=== PATIENT | male | born 1980 | race Hispanic/Latino ===

== ENCOUNTER 2019-01-25 | Emergency (ER) | payer MEDICAID ==
[2019-01-25 00:22] VITALS: RESP 20
--- NOTE | 2019-01-25 01:31 | C.PDOC ---
History Of Present Illness 38 y/o male pt presents to the ER requesting detox for alcohol, heroin and cocaine. Pt has no associated sx or complaints at this time. Time Seen by Provider: 01/25/19 00:54 Chief Complaint (Nursing): Substance Abuse History Per: Patient History/Exam Limitations: no limitations Onset/Duration Of Symptoms: Days Current Symptoms Are (Timing): Still Present Modifying Factor(s): Alcohol, Narcotics, Cocaine Past Medical History Reviewed: Historical Data, Nursing Documentation, Vital Signs Vital Signs: Last Vital Signs Temp 98.8 F 01/25/19 00:14 Pulse 92 H 01/25/19 00:14 Resp 20 01/25/19 00:14 BP 119/80 01/25/19 00:14 Pulse Ox 96 01/25/19 00:14 Family History: States: No Known Family Hx - Social History Hx Alcohol Use: Yes Hx Substance Use: Yes - Immunization History Hx Tetanus Toxoid Vaccination: No Hx Influenza Vaccination: No Hx Pneumococcal Vaccination: No Review Of Systems Except As Marked, All Systems Reviewed And Found Negative. Constitutional: Positive for: Other (requesting detox ) Gastrointestinal: Negative for: Nausea, Vomiting Skin: Negative for: Rash Neurological: Negative for: Weakness, Numbness Physical Exam - Physical Exam Appears: Non-toxic, No Acute Distress Skin: Warm, Dry Head: Normacephalic Eye(s): bilateral: Normal Inspection Ear(s): Bilateral: Normal Nose: Normal Oral Mucosa: Moist Throat: Normal Chest: Symmetrical Cardiovascular: Rhythm Regular Respiratory: Normal Breath Sounds Gastrointestinal/Abdominal: Soft, No Tenderness Neurological/Psych: Oriented x3, Normal Speech ED Course And Treatment O2 Sat by Pulse Oximetry: 96 (RA) Pulse Ox Interpretation: Normal Progress Note: There are no detox beds available. Pt was given number to call and be placed on the list for detox. pt remained stable at discharge ( HR of 18 at discharge was erroneously entered). 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 - Scribe Statement The provider has reviewed the documentation as recorded by the Navdeep Umaña Do All medical record entries made by the Corinneibmarycarmen were at my direction and personally dictated by me. I have reviewed the chart and agree that the record accurately reflects my personal performance of the history, physical exam, medical decision making, and the department course for this patient. I have also personally directed, reviewed, and agree with the discharge instructions and disposition.
[2019-01-25 01:39] VITALS: BP 130/72; PULSE 18; TEMP 98.7
[2019-01-25 04:25] VITALS: O2SAT 96
== END 2019-01-25 01:39 | disposition home or self-care (01) ==
LOC: C.ER
DX: F19.10 Other psychoactive substance abuse, uncomplicated (principal)

== ENCOUNTER 2019-01-25 07:42 | Emergency (ER) | payer MEDICAID ==
[2019-01-25 07:50] VITALS: RESP 16
--- NOTE | 2019-01-25 08:20 | C.PDOC ---
History Of Present Illness 38 years old male presents to ED requesting detox from alcohol, Xanax, and Heroin. Patient states last use was yesterday night. Patient also reports he he was just discharged from [facility] this morning. Patient states PMHx of Scoliosis and "mild cerebral palsy." Time Seen by Provider: 01/25/19 07:43 Chief Complaint (Nursing): Substance Abuse History Per: Patient History/Exam Limitations: no limitations Onset/Duration Of Symptoms: Hrs Current Symptoms Are (Timing): Still Present Modifying Factor(s): Alcohol, Narcotics (Heroin ), Other (Xanax) Associated Symptoms: denies: Suicidal Thoughts, Suicidal Plan Involuntary Hold By: None Recent travel outside of the [place]: No Past Medical History Reviewed: Historical Data, Nursing Documentation, Vital Signs Vital Signs: Last Vital Signs Temp 97.7 F 01/25/19 07:46 Pulse 91 H 01/25/19 07:46 Resp 16 01/25/19 07:46 BP 172/91 H 01/25/19 07:46 Pulse Ox 96 01/25/19 07:46 - Medical History PMH: No Chronic Diseases Family History: States: No Known Family Hx - Social History Hx Alcohol Use: Yes Hx Substance Use: Yes - Immunization History Hx Tetanus Toxoid Vaccination: No Hx Influenza Vaccination: No Hx Pneumococcal Vaccination: No Review Of Systems Constitutional: Negative for: Fever, Chills Gastrointestinal: Negative for: Nausea, Vomiting, Diarrhea Skin: Negative for: Rash Neurological: Negative for: Weakness, Numbness Physical Exam - Physical Exam Appears: Non-toxic, No Acute Distress, Other (Appears under the influence. Arousable. Drowsy. Slurred Speech. ) Skin: Normal Color, Warm, Dry, No Rash Head: Atraumatic, Normacephalic Eye(s): bilateral: Other (Pin Point Pupils) Nose: Normal Oral Mucosa: Moist Neck: Normal ROM, Supple Chest: Symmetrical, No Tenderness Cardiovascular: Rhythm Regular, No Murmur Respiratory: Normal Breath Sounds, No Rales, No Rhonchi, No Wheezing Gastrointestinal/Abdominal: Soft, No Tenderness Extremity: Normal ROM Extremity: Bilateral: Atraumatic, Normal Color And Temperature, Normal ROM Pulses: Left Radial: Normal, Right Radial: Normal Neurological/Psych: Oriented x3, Other (No focal deficits ) ED Course And Treatment - Laboratory Results Result Diagrams: 01/25/19 09:34 01/25/19 09:34 O2 Sat by Pulse Oximetry: 96 (RA) Pulse Ox Interpretation: Normal Progress Note: Ordered Blood work and Urinalysis. 10:10- Patient not cooperative, will not allow security to search him or lock up his posssessions. Will discharge patient. Disposition Counseled Patient/Family Regarding: Diagnosis, Need For Followup - Disposition Referrals: [facility] [Outside] Disposition: HOME/ ROUTINE Disposition Time: 10:10 Condition: STABLE Instructions: Polysubstance Abuse (DC) Forms: [employer] (Serbian) Print Language: GERMAN - Clinical Impression Clinical Impression: Substance abuse - PA / MANAGER ESTATE / Resident Statement MD/DO has reviewed & agrees with the documentation as recorded. - Scribe Statement Kenny Fraga All medical record entries made by the Scribe were at my direction and personally dictated by me. I have reviewed the chart and agree that the record accurately reflects my personal performance of the history, physical exam, medical decision making, and the department course for this patient. I have also personally directed, reviewed, and agree with the discharge instructions and disposition.
[2019-01-25 09:40] LABS: BASO % 0.6 % (0.0-2.0); EOS # 0.2 K/uL (0.0-0.7); HEMOGLOBIN 11.7 g/dL (12.0-18.0); LYMPH # 1.4 K/uL (1.0-4.3); LYMPH % 32.4 % (20.0-40.0); MEAN CELL VOLUME 83.2 fL (80.0-94.0); MEAN CORPUSCULAR HEMOGLOBIN 27.5 pg (27.0-31.0); MEAN CORPUSCULAR HGB CONC 33.1 g/dL (33.0-37.0); MEAN PLATELET VOLUME 7.9 fL (7.2-11.7); MONO # 0.6 K/uL (0.0-0.8); MONO % 14.1 % (0.0-10.0); NEUT # 2.1 K/uL (1.8-7.0); NEUT % 48.9 % (50.0-75.0); RBC 4.27 Mil/uL (4.40-5.90); RED CELL DISTRIBUTION WIDTH 17.5 % (11.5-14.5); WHITE BLOOD COUNT 4.3 K/uL (4.8-10.8)
[2019-01-25 09:41] LABS: SQUAMOUS EPITHIAL < 1 /hpf (0-5); URINE BILIRUBIN NEGATIVE (NEGATIVE); URINE BLOOD NEGATIVE (NEGATIVE); URINE CLARITY Hazy (Clear); URINE COLOR Yellow (YELLOW); URINE GLUCOSE (UA) NORMAL (Normal); URINE LEUKOCYTE ESTERASE NEG Leu/uL (Negative); URINE PROTEIN NEGATIVE (NEGATIVE); URINE UROBILINOGEN NORMAL mg/dL (0.2-1.0)
[2019-01-25 09:58] LABS: BARBITURATES, UR NEGATIVE (NEGATIVE); BENZODIAZEPINES, UR POSITIVE (NEGATIVE); OPIATES, UR NEGATIVE (NEGATIVE); PHENCYCLIDINE, UR NEGATIVE (NEGATIVE)
[2019-01-25 09:59] LABS: ALB/GLOB RATIO 1.7 (1.0-2.1); ALT/SGPT 24 U/L (21-72); AST/SGOT 33 U/L (17-59); BLOOD UREA NITROGEN 20 mg/dL (9-20); CALCIUM 9.1 mg/dl (8.6-10.4); GFR NON-AFRICAN AMERICAN > 60
[2019-01-25 10:49] VITALS: BP 138/81; PULSE 84; TEMP 98.1; O2SAT 98
== END 2019-01-25 10:46 | disposition home or self-care (01) ==
LOC: C.ER 07:42
DX: F19.10 Other psychoactive substance abuse, uncomplicated (principal)